=== PATIENT | male | born 1980 | race African-American/Black ===

== ENCOUNTER 2021-04-19 15:16 | Emergency (ER) | payer OTHER ==
[~2021-04-19] VITALS: Ht 177.8 cm; Wt 77.1 kg
[2021-04-19] MEDS ORDERED: LISINOPRIL10 MG PO (15:51)
[2021-04-19] MEDS ORDERED: NORVASC10 MG PO (15:51)
[2021-04-19 16:24] VITALS: BP 150/106
== END 2021-04-19 16:23 | disposition home or self-care (01) ==
LOC: ER 15:16
DX: I10 Essential (primary) hypertension (principal); F12.90 Cannabis use, unspecified, uncomplicated